=== PATIENT | female | born 1955 | race Caucasian/White ===

== ENCOUNTER 2017-01-19 03:29 | Inpatient (IN) | payer OTHER ==
--- NOTE | 2017-01-19 03:35 | EDPHY ---
H & P HPI/ROS: HPI CHIEF COMPLAINT: Left hip pain. HISTORY OF PRESENT ILLNESS: This patient very pleasant 61-year-old female she presents emergency room by EMS with left hip pain. She was walking on hardwood floor since then fell in her house. She now has left lateral hip pain. Her leg is externally rotated and shortened. She was drinking alcohol this evening. She denies any other areas of injury. She complains of 10/10 pain of the left hip. She did receive 100 mcg IV fentanyl prior to arrival and 2 mg IV Versed. Continues to still have pain. Her left leg is neurovascularly intact. She denies any other areas of injury. Additionally the patient reports her son when on [employer] and cool cold how to put dislocated hip back in manipulated her hip however this did not working cause worsening pain. Past Medical History: Chronic pain, on methadone, hypertension. Past Surgical History: Knee surgery Social History: Admits to drinking alcohol this evening. Multiple drinks Family History: Noncontributory ROS REVIEW OF SYSTEMS: A comprehensive 10 point review of systems is otherwise negative aside from elements mentioned in the history of present illness. Exam Constitutional nontoxic appearing, triage nursing summary reviewed, vital signs reviewed, awake/alert. Eyes normal conjunctivae and sclera, EOMI, PERRLA. HENT normal inspection, atraumatic, moist mucus membranes, no epistaxis, neck supple/ no meningismus, no raccoon eyes. Respiratory clear to auscultation bilaterally, normal breath sounds, no respiratory distress, no wheezing. Cardiovascular rate normal, regular rhythm, no murmur, no edema, distal pulses normal. Gastrointestinal soft, non-tender, no rebound, no guarding, normal bowel sounds, no distension, no pulsatile mass. Genitourinary no CVA tenderness. Musculoskeletal no midline vertebral tenderness, full range of motion, no calf swelling, no tenderness of extremities, no meningismus, good pulses, neurovascularly intact. Left lower extremity: Neurovascular intact good distal pulse., good warm extremity, it is externally rotated and shortened. Tender palpation over the left lateral hip. This appears to mainly be dislocated. Possible actual. Skin pink, warm, & dry, no rash, skin atraumatic. Neurologic awake, alert and oriented x 3, AAOx3, moves all 4 extremities equally, motor intact, sensory intact, CN II-XII intact, normal cerebellar, normal vision, normal speech. Psychiatric normal mood/affect. Heme/Lymph/Immune no lymphadenopathy. Differential Diagnosis: Includes but is not limited to in a particular order, hip fracture, hip fracture and dislocation, hip dislocation Medical Decision Making: Plan for this patient IV establishment patient care specialist , IV pain control 1 mg Dilaudid, IV Valium for muscle spasm 5 mg, x-ray left hip. Evaluate for fracture versus dislocation. Re-evaluation: 0401: The left x-ray shows a comminuted and impacted femoral neck fracture. 0401: Spoke with Ortho Carly HOOPER, call center assistant for Dr. Perez. Patient be admitted to the hospitalist. They plan on seeing the patient in morning rounds. Plan for OR. NPO. [id number]: This patient throughout her emergency room course was extremely agitated screaming in pain for over an hour. Restless. She admits to edible marijuana prior to arrival. As well as alcohol. She required a total of 3 mg high IV Dilaudid for acute pain control 10 mg IV Valium to control her acute agitation and restlessness. However this she continued to be agitated and restless. She was given 50 mg IV Benadryl which seemed to help her rest and calmed down. She received 1 L fluid. She has Vega in place. She is getting a 2nd L fluid. When she is Calm and not agitated I will allow her to go to the floor. Source: Patient, EMS - Medical/Surgical History Hx Asthma: No Hx Chronic Respiratory Disease: No Hx Diabetes: No Hx Cardiac Disease: No Hx Renal Disease: No Hx Cirrhosis: No Hx Alcoholism: No Hx HIV/AIDS: No Hx Splenectomy or Spleen Trauma: No Other PMH: Chronic pain, multiple orthopedic surgeries, HTN - Social History Smoking Status: Never smoked Constitutional: Initial Vital Signs Temperature (C) 36.5 C 01/19/17 03:35 Heart Rate 94 01/19/17 03:35 Respiratory Rate 18 01/19/17 03:35 Blood Pressure 141/97 H 01/19/17 03:35 O2 Sat (%) 94 01/19/17 03:35 O2 Delivery Mode Room Air Allergies/Adverse Reactions: bupropion Allergy (Severe, Verified 01/19/17 11:15) Other-Enter Comments beatriz Allergy (Severe, Uncoded 01/19/17 11:15) Home Medications: Medication Instructions Recorded FLUoxetine [Prozac 20 MG (*)] 20 mg PO DAILY 01/19/17 Lisinopril/Hctz 20/12.5MG 1 ea PO DAILY 01/19/17 [Zestoretic/Prinzide 20/12.5MG (*)] Methadone HCl [Methadone HCl 10 mg 20 mg PO BID 01/19/17 (*)] traMADol [Ultram 50 mg (*)] 25 - 50 mg PO Q6 PRN 01/19/17 traZODone [traZODONE 100MG (*)] 50 - 100 mg PO HS 01/19/17 Medical Decision Making - Diagnostics Imaging Results: Imaging Impressions Fluoroscopy 01/19/17 00:00 Impression: Fluoroscopy provided for left hip pinning procedure. Hip X-Ray 01/19/17 03:32 Impression: Comminuted, displaced, and foreshortened intertrochanteric fracture of the left hip. - Data Points Laboratory Results: Laboratory Results 01/19/17 03:30 01/19/17 03:30 Medications Given: Folic Acid (Folic Acid) 1 mg PO DAILY RAFY Stop: 07/18/17 08:59 Last Admin: 01/19/17 09:28 Dose: 1 mg Sodium Chloride (Ns) 1,000 mls @ 75 mls/hr IV CONT RAFY Stop: 07/18/17 06:14 Last Admin: 01/19/17 06:36 Dose: 1,000 mls Thiamine HCl 500 mg/ Sodium (Chloride) 105 mls @ 210 mls/hr IV DAILY RAFY Stop: 01/20/17 09:00 Last Admin: 01/19/17 09:11 Dose: 105 mls Lorazepam (Ativan Injection) 0.5 - 1 mg IVP Q8HRS PRN PRN Reason: Anxiety, Unable to Take PO Stop: 07/18/17 06:08 Last Admin: 01/19/17 06:39 Dose: 1 mg Lorazepam (Ativan Injection) 1 mg IVP Q4HRS PRN PRN Reason: Agitation Stop: 07/18/17 08:36 Last Admin: 01/19/17 13:45 Dose: 1 mg Multivitamins (Tab-A-Amado) 1 each PO DAILY RAFY Stop: 07/18/17 08:59 Last Admin: 01/19/17 09:27 Dose: 1 each Oxycodone HCl (Oxycodone Ir) 5 - 10 mg PO Q3HRS PRN PRN Reason: Pain, Severe Able to Take PO Stop: 01/29/17 06:08 Last Admin: 01/19/17 09:27 Dose: 10 mg Wine (White Wine) 240 ml PO DAILY AT 6PM RAFY Stop: 07/18/17 17:59 Last Admin: 01/19/17 21:38 Dose: Not Given Discontinued Medications Bupivacaine HCl (Sensorcaine 0.5% Vial) Confirm Administered Dose 30 ml .ROUTE .STK-MED ONE Stop: 01/19/17 14:29 Last Admin: 01/19/17 16:08 Dose: Not Given Bupivacaine HCl (Sensorcaine 0.25% Sdv) Confirm Administered Dose 30 ml .ROUTE .STK-MED ONE Stop: 01/19/17 15:17 Last Admin: 01/19/17 16:11 Dose: 30 ml Cefazolin Sodium (Ancef) Confirm Administered Dose 1 gm .ROUTE .STK-MED ONE Stop: 01/19/17 15:59 Last Admin: 01/19/17 15:59 Dose: 1 gm Cefazolin Sodium/Dextrose (Ancef 2 Gm (Premix)) Confirm Administered Dose 2 gm IV .STK-MED ONE Stop: 01/19/17 16:10 Last Admin: 01/19/17 14:49 Dose: 2 gm Diazepam (Valium Injection) 5 mg IVP EDNOW ONE Stop: 01/19/17 03:46 Last Admin: 01/19/17 03:48 Dose: 5 mg Diazepam (Valium Injection) 5 mg IVP EDNOW ONE Stop: 01/19/17 04:24 Last Admin: 01/19/17 04:26 Dose: 5 mg Diphenhydramine HCl (Benadryl Injection) 50 mg IVP EDNOW ONE Stop: 01/19/17 05:00 Last Admin: 01/19/17 05:01 Dose: 50 mg Epinephrine HCl (Epinephrine) Confirm Administered Dose 1 mg .ROUTE .STK-MED ONE Stop: 01/19/17 15:17 Last Admin: 01/19/17 16:11 Dose: 0.15 mg Fentanyl (Sublimaze) 25 - 100 mcg IVP Q5M PRN PRN Reason: PACU, IMMEDIATE Pain control Stop: 01/19/17 16:17 Last Admin: 01/19/17 17:50 Dose: 50 mcg Hydromorphone HCl (Dilaudid) 1 mg IVP EDNOW ONE Stop: 01/19/17 04:00 Last Admin: 01/19/17 04:00 Dose: 1 mg Hydromorphone HCl (Dilaudid) 1 mg IVP EDNOW ONE Stop: 01/19/17 04:01 Last Admin: 01/19/17 04:26 Dose: Not Given Hydromorphone HCl (Dilaudid) 1 mg IVP EDNOW ONE Stop: 01/19/17 04:36 Last Admin: 01/19/17 04:36 Dose: 1 mg Hydromorphone HCl (Dilaudid) 1 mg IVP EDNOW ONE Stop: 01/19/17 04:47 Last Admin: 01/19/17 04:55 Dose: 1 mg Hydromorphone HCl (Dilaudid) 0.5 - 1 mg IVP Q3HRS PRN PRN Reason: Pain, Severe Unable to Take PO Stop: 01/29/17 06:48 Last Admin: 01/19/17 08:12 Dose: 1 mg Hydromorphone HCl (Dilaudid) 2 mg IVP Q3HRS PRN PRN Reason: Pain, Severe Unable to Take PO Stop: 01/29/17 06:48 Last Admin: 01/19/17 11:13 Dose: 2 mg Hydromorphone HCl (Dilaudid) 0.1 - 0.4 mg IVP Q10M PRN PRN Reason: PACU, PAIN Stop: 01/19/17 16:18 Last Admin: 01/19/17 18:24 Dose: 0.4 mg Hydromorphone HCl (Dilaudid) 0.2 - 0.4 mg IVP Q10M PRN PRN Reason: SEVERE PAIN PACU Stop: 01/19/17 18:12 Last Admin: 01/19/17 18:34 Dose: 0.2 mg Sodium Chloride (Ns) 1,000 mls @ 0 mls/hr IV ONCE ONE PRN Reason: Wide Open Stop: 01/19/17 03:52 Last Admin: 01/19/17 04:05 Dose: 1,000 mls Sodium Chloride (Ns) 1,000 mls @ 0 mls/hr IV ONCE ONE PRN Reason: Wide Open Stop: 01/19/17 05:03 Last Admin: 01/19/17 05:03 Dose: 1,000 mls Lorazepam (Ativan Injection) 1 mg IVP ONCE ONE Stop: 01/19/17 07:59 Last Admin: 01/19/17 08:16 Dose: 1 mg Departure - Departure Disposition: [facility] Inpatient Acute Clinical Impression: Hip fracture Qualifiers: Encounter type: initial encounter Fracture type: closed Laterality: left Qualified Code(s): S72.002A - Fracture of unspecified part of neck of left femur , initial encounter for closed fracture Condition: Fair
[2017-01-19] MEDS ORDERED: DIAZEPAM 10 MG/2 ML SYR ONE (03:40)
[2017-01-19] MEDS ORDERED: DIAZEPAM 10 MG/2 ML SYR IVP ONE ×2 (03:45→04:23)
[2017-01-19] MEDS ORDERED: NS 1,000 ML IV ONE ×2 (03:51→05:02)
[2017-01-19 03:55] LABS: % IMMATURE GRANULYOCYTES 0.2 % (0.0-1.1); ABSOLUTE IMMATURE GRANULOCYTES 0.01 10^3/uL (0.00-0.10); ADD DIFF? NO; ADD MORPH? NO; ADD SCAN? NO; ATYPICAL LYMPHOCYTE FLAG 30 (0-99); FRAGMENT RBC FLAG 0 (0-99); HEMATOCRIT 36.7 % (38.0-47.0); HEMOGLOBIN 12.9 g/dL (12.6-16.3); LEFT SHIFT FLG 0 (0-99); LIPEMIA HEMOLYSIS FLAG 90 (0-99); MEAN CELL HEMOGLOBIN 31.5 pg (27.9-34.1); MEAN CELL HEMOGLOBIN CONCENTR. 35.1 g/dL (32.4-36.7); MEAN CELL VOLUME 89.5 fL (81.5-99.8); PLATELET CLUMPS FLAG 10 (0-99); PLATELET COUNT 226 10^3/uL (150-400); RED CELL DISTRIBUTION WIDTH 11.2 % (11.5-15.2)
[2017-01-19] MEDS ORDERED: HYDROmorphONE/DILAUDID 1 MG/ML INJ ONE ×2 (03:58→18:01)
[2017-01-19] MEDS ORDERED: HYDROmorphONE/DILAUDID 1 MG/ML INJ IVP ONE ×4 (03:59→04:46)
[2017-01-19 04:02] LABS: ANION GAP 17 mEq/L (8-16); CALCIUM 9.4 mg/dL (8.5-10.4); CARBON DIOXIDE 26 mEq/l (22-31); CHLORIDE 82 mEq/L (97-110); CREATININE 0.8 mg/dL (0.6-1.0); ETHANOL SERUM 192 mg/dL (0-10); GLOMERULAR FILTRATION RATE > 60; GLUCOSE 100 mg/dL (70-100); POTASSIUM 3.6 mEq/L (3.5-5.2); SODIUM 125 mEq/L (134-144)
[2017-01-19 04:04] LABS: APTT 31.4 SEC (23.0-38.0); INR 1.04 (0.83-1.16); PROTIME(PATIENT) 13.5 SEC (12.0-15.0)
[2017-01-19] MEDS ORDERED: PROMETHAZINE HCL 25 MG/ML INJ IVP PRN (06:09)
[2017-01-19] MEDS ORDERED: ONDANSETRON 4 MG/2 ML VIAL IVP PRN ×2 (06:09→15:17)
[2017-01-19] MEDS: NS 1,000 ML IV SCH (06:36)
[2017-01-19] MEDS: LORazepam 2 MG/ML INJ IVP PRN ×2 (06:39→13:45)
[2017-01-19] MEDS ORDERED: HYDROmorphONE/DILAUDID 1 MG/ML INJ IVP PRN ×3 (06:49→18:11)
[2017-01-19] MEDS ORDERED: LORazepam 2 MG/ML INJ IVP ONE (07:58)
--- NOTE | 2017-01-19 08:16 | PDGENHP ---
History and Physical - Chief Complaint left hip pain, fall at home - History of Present Illness Source - patient provides some of the history. She is crying out in pain and intermittently confused and agitated but attempts to be cooperative. HPI - 61 yo F with pmhx significant for chronic pain on chronic narcotic therapy , HTN, and alcohol dependence who presents to the ED today following a mechanical fall at home. Patient reports that she was carrying up laundry from the baseline to fold them when she stubbed her toes on the table leg and fell down. She reports immediate pain in her left hip and spasms in the leg. She denies any numbness/tingling. She denies any pre-ceding lightheadedness, chest pain or shortness of breath. She does report hitting her head but denies any LOC. Patient reports some history of nausea this evening otherwise denies any other complaints except for spasm pains in her leg and subjective fever soon after arrival to ED. no cough/rhinorrhea/sore throat/dysuria. History Information - Allergies/Home Medication List Allergies/Adverse Reactions: beatriz Allergy (Uncoded 08/04/13 00:09) Home Medications: Methadone HCl 08/04/13 [Last Taken Unknown] traZODONE 08/04/13 [Last Taken Unknown] Lisinopril 08/06/13 [Last Taken Unknown] I have personally reviewed and updated: family history, medical history, social history, surgical history Past Medical History: chronic pain on chronic narcotic therapy. HTN. alcohol dependence. marijuana use - Surgical History Additional surgical history: open ACL repair - Family History Negative for: diabetes type II, sudden , vascular disease, CAD - Social History Smoking Status: Never smoked Alcohol Use: Other Drug Use: Marijuana Review of Systems Review of Systems: ROS: 10pt was reviewed & negative except for what was stated in HPI & below Constitutional: Reports: fever. Denies: chills Cardiac: Denies: lightheadedness, palpitations, syncope Respiratory: Reports: no symptoms. Denies: cough, shortness of breath Gastrointestinal: Reports: nausea. Denies: vomitting, black stools Genitourinary: Denies: dysuria, flank pain Muscolosketal: Reports: joint pain Skin: Denies: rash Physical Exam Physical Exam: Temp Pulse Resp BP Pulse Ox 37 C 100 18 162/84 H 93 01/19/17 07:57 01/19/17 07:57 01/19/17 07:57 01/19/17 07:57 01/19/17 07:57 O2 (L/minute) 2 Constitutional: chronically ill appearing, No no apparent distress, No not in pain Eyes: PERRL, anicteric sclera Ears, Nose, Mouth, Throat: dry mucous membranes, No moist mucous membranes Cardiovascular: regular rate and rhythym, pulses symmetric bilaterally, tachycardia, No edema Peripheral Pulses: 2+: dorsalis-pedis (R), dorsalis-pedis (L) Respiratory: no respiratory distress, clear to auscultation, No expiratory wheeze Gastrointestinal: normoactive bowel sounds, no palpable masses, No tenderness Genitourinary: No no bladder fullness, No hager in urethra Skin: warm, normal color, No rash Musculoskeletal: full muscle strength (moves all other extremities except left leg. hip flexed and externally rotated. moves foot/toes. ), joint tenderness ( left leg), No generalized weakness Neurologic: sensation intact bilaterally, other (nonfocal exam. ), No AAOx3 ( sometimes confused. ), No numbness Psychiatric: anxious, other (intermittently confused. ), No interacting appropriately Lab Data & Imaging Review 01/19/17 03:30 01/19/17 03:30 WBC 5.55 10^3/uL (3.80-9.50) 01/19/17 03:30 RBC 4.10 10^6/uL (4.18-5.33) L 01/19/17 03:30 Hgb 12.9 g/dL (12.6-16.3) 01/19/17 03:30 Hct 36.7 % (38.0-47.0) L 01/19/17 03:30 MCV 89.5 fL (81.5-99.8) 01/19/17 03:30 MCH 31.5 pg (27.9-34.1) 01/19/17 03:30 MCHC 35.1 g/dL (32.4-36.7) 01/19/17 03:30 RDW 11.2 % (11.5-15.2) L 01/19/17 03:30 Plt Count 226 10^3/uL (150-400) 01/19/17 03:30 MPV 10.0 fL (8.7-11.7) 01/19/17 03:30 Neut % (Auto) 38.5 % (39.3-74.2) L 01/19/17 03:30 Lymph % (Auto) 50.1 % (15.0-45.0) H 01/19/17 03:30 [place] % (Auto) 8.5 % (4.5-13.0) 01/19/17 03:30 Eos % (Auto) 2.2 % (0.6-7.6) 01/19/17 03:30 Baso % (Auto) 0.5 % (0.3-1.7) 01/19/17 03:30 Nucleat RBC Rel Count 0.0 % (0.0-0.2) 01/19/17 03:30 Absolute Neuts (auto) 2.14 10^3/uL (1.70-6.50) 01/19/17 03:30 Absolute Lymphs (auto) 2.78 10^3/uL (1.00-3.00) 01/19/17 03:30 Absolute Monos (auto) 0.47 10^3/uL (0.30-0.80) 01/19/17 03:30 Absolute Eos (auto) 0.12 10^3/uL (0.03-0.40) 01/19/17 03:30 Absolute Basos (auto) 0.03 10^3/uL (0.02-0.10) 01/19/17 03:30 Absolute Nucleated RBC 0.00 10^3/uL (0-0.01) 01/19/17 03:30 Immature Gran % 0.2 % (0.0-1.1) 01/19/17 03:30 Immature Gran # 0.01 10^3/uL (0.00-0.10) 01/19/17 03:30 PT 13.5 SEC (12.0-15.0) 01/19/17 03:30 INR 1.04 (0.83-1.16) 01/19/17 03:30 APTT 31.4 SEC (23.0-38.0) 01/19/17 03:30 Sodium 125 mEq/L (134-144) L 01/19/17 03:30 Potassium 3.6 mEq/L (3.5-5.2) 01/19/17 03:30 Chloride 82 mEq/L (97-110) L 01/19/17 03:30 Carbon Dioxide 26 mEq/l (22-31) 01/19/17 03:30 Anion Gap 17 mEq/L (8-16) H 01/19/17 03:30 BUN 14 mg/dL (7-23) 01/19/17 03:30 Creatinine 0.8 mg/dL (0.6-1.0) 01/19/17 03:30 Estimated GFR > 60 01/19/17 03:30 Glucose 100 mg/dL (70-100) 01/19/17 03:30 Calcium 9.4 mg/dL (8.5-10.4) 01/19/17 03:30 Urine Opiates Screen NEGATIVE (NEGATIVE) 01/19/17 04:10 Urine Barbiturates NEGATIVE (NEGATIVE) 01/19/17 04:10 Ur Phencyclidine Scrn NEGATIVE (NEGATIVE) 01/19/17 04:10 Ur Amphetamine Screen NEGATIVE (NEGATIVE) 01/19/17 04:10 U Benzodiazepines Scrn NON-NEGATIVE (NEGATIVE) H 01/19/17 04:10 Urine Cocaine Screen NEGATIVE (NEGATIVE) 01/19/17 04:10 U Marijuana (THC) Screen NON-NEGATIVE (NEGATIVE) H 01/19/17 04:10 Ethyl Alcohol 192 mg/dL (0-10) H 01/19/17 03:30 Visualized and Interpreted imaging results: Yes Assessment & Plan Assessment: Hip fracture (Acute) 1. Left hip fracture - 2/2 mechanical fall at home per the patient however during interview patient progressively with increased confusion further evaluation as noted below. Ortho consulted from ED and saw patient this AM. discussed patient and not yet ready for surgery until further evaluation of AMS and sodium. 2. Altered mental status - ddx including polysubstance use vs. intracranial injury vs. less like stroke vs metabolic related to hyponatremia. CT Head will be ordered. patient is able to move all extremities with exception of left LE. check UA, CXR r/o infectious sources. IVF. monitor sodium and urine studies. 3. hyponatremia - serum/urine studies as above. IVF for now. 4. hypochloridemia - decreased in setting of hyponatremia. 5. anemia - mildly decreased and chronicity unknown. Hx of etoh will monitor cbc. 6. fall at home - pt reports is mechanical. bedrest at this time. fall precautions. 5. alcohol dependence - patient alcohol level 192. [facility] protocol 6. marijuana abuse - cessation encouraged. 7. chronic opiate use - pain may be difficult to control postoperatively and will need escalation from baseline. 8. benign essential HTN - BPs likely elevated acutely with pain. hydralazine prn. resume lisinopril postoperatively when diet advanced. 9. FEN - IVF. electrolyte replacement prn. NPO pending ortho eval. 10. PPX - SCDs. holding anticoagulation pre-operatively. 11. COR - FULL 12. Dispo - admit patient to inpatient status. Patient will require greater than 2 midnight stay in setting of hip fracture.
[2017-01-19] MEDS ORDERED: hydrALAZINE 20 MG/ML VIAL IVP PRN (08:36)
--- NOTE | 2017-01-19 08:53 | GHP ---
[f rep st] PREOP HISTORY AND PHYSICAL DATE OF ADMISSION: 01/19/2017 CHIEF COMPLAINT: The patient was brought to the emergency department last night with complaints of left hip pain after a fall. HISTORY OF PRESENT ILLNESS: The patient states that she was at home when she slipped on wooden floors, landing on her left hip. She states that she also hit her head, but did not lose consciousness. At this time, she does not complain of a headache. She does complain of pain in the left leg when her leg is moved, but at rest she is generally saying that it feels okay. Her history is somewhat limited as she does seem very sedated and somewhat confused. However, she was able to give a history of her present illness. She has never injured this hip before and does not have pain into the femur, knee, lower leg, ankle, or foot on the left side. She does not have numbness or tingling of the toes. She denies any other joint pain at this time. PAST MEDICAL HISTORY: The patient states that she is on methadone for chronic pain. 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 She states that she also has ongoing back pain, but is not able to give me the underlying diagnosis. She also has a history of hypertension. SURGICAL HISTORY: The patient had the above-mentioned knee replacements twice on the left side and the femur fracture on the right side when she was younger. She does not recall any other orthopedic surgeries at this time. SOCIAL HISTORY: The patient did drink alcohol last night, and upon her ER report admitted to edible marijuana; however, when I asked her about this, she stated that she did not. She denied any other drug use when asked. She is a nonsmoker. Currently, she is not accompanied by any family members, but states that her is on his way. FAMILY HISTORY: Patient is unaware of any past medical history regarding her family members. ALLERGIES: Nickel. MEDICATIONS: Trazodone, methadone, and lisinopril. This is taken from her ER report. She is unable to verbalize her medications to me when I ask her. REVIEW OF SYSTEMS: 10-point review of systems was otherwise negative as best that she is able to answer. PHYSICAL EXAMINATION: GENERAL: The patient is alert, answers some questions appropriately but, again, is quite sedated and somewhat confused. She does not appear to be in any distress related to pain, however. HEENT: The patient's head is atraumatic and normocephalic. Extraocular movements are intact. Pupils are equal, round, reactive to light. Nares are patent. Hearing is grossly normal. Oral mucosa is moist. LUNGS: Respirations are easy and nonlabored. No respiratory distress is present. CARDIOVASCULAR: Distally the patient's upper extremity and lower extremity pulses are equal. No lower extremity edema is present. Capillary refill is brisk to all digits in both upper and lower extremities. GASTROINTESTINAL: The patient's abdomen is soft and nontender. SKIN: No abrasions, lacerations, ecchymosis, redness, or warmth is seen. PSYCH: As above regarding patient's difficulty in answering questions c/w AMS. NEUROLOGIC: Sensation is intact to both upper and lower extremities. She can move all fingers and toes without difficulty. MUSCULOSKELETAL: The patient's left hip is rested in a shortened and an externally rotated position. She does not have pain with palpation at the knee , calf, lower leg, ankle, or foot on the left side. She does not have pain with internal or external rotation of the right hip. No pain to palpate the femur, knee, lower leg, or ankle. Chest wall is nontender. The upper extremities reveal full range of motion with no pain at the wrists, forearm, elbow, and shoulder. No clavicle tenderness is present bilaterally. Comp's soft. DNVI BLE's. No calf TTP, neg Nahun's. Secondary survey negative. IMAGING: X-rays of the left hip reveal a comminuted left intertrochanteric hip fracture and distal plate/screws. IMPRESSION: Left IT hip fracture PLAN: Case was discussed with Dr. Zaman, the hospitalist who admitted the patient. At this time, the patient is not cleared. Given her mental status, a CT of the head was to be ordered. We will await results of the head CT before clearing her for surgery and arranging the ORIF L hip later today. Later this AM, MS improved and R/B/A discussed with patient and her , and a signed and witnessed informed consent has been obtained by Dr Kothari with signatures by both pt and . Cont NPO, bedrest, position of comfort, analgesia. All questions answered and they are happy with the plan and care received. History, exam, plan and consent procedure performed and/or directly supervised by Dr Kothari. /[id number]/MODL MTDD
[2017-01-19 09:11] LABS: COLOR PALE YELLOW; LEUKOCYTE ESTERASE,URINE NEGATIVE (NEGATIVE); NITRITE,URINE NEGATIVE (NEGATIVE)
[2017-01-19] MEDS: THIAMINE HCL 500 MG in NS 100 ML IV SCH (09:11)
[2017-01-19 09:20] LABS: RBC,URINE 50-182 /hpf (0-3)
--- NOTE | 2017-01-19 09:20 | PDMN ---
Medical Necessity Medical necessity: C/M review: Pt. meets INPT criteria per Musculoskeletal disease GRG; Acute left intertrochanteric hip fracture, altered mental status, hyponatremia, Na 125, Cl 82 requiring planned - surgical intervention when medically cleared, 01/19/[address], ongoing NPO, IV fluids, IV Dilaudid, IV Ativan, CIWA protocol, comorbid fall just prior to this admission, alcohol dependence, marijuana abuse, chronic pain with chronic opiate use, HTN; anticipates > 2 MN LOS for ongoing medical necessity for eval and TX of above.
[2017-01-19] MEDS: MULTIVITAMINS 1 EACH TAB PO SCH (09:27)
[2017-01-19] MEDS: oxyCODONE IR 5 MG TAB PO PRN ×2 (09:27→23:11)
[2017-01-19] MEDS: FOLIC ACID 1 MG TAB PO SCH (09:28)
--- NOTE | 2017-01-19 09:41 | HOSPPROG ---
Hospitalist Progress Note Assessment/Plan: Patient is a 61-year-old female who had a mechanical fall at home and sustained a left hip fracture. She was to go OR this morning but had some altered mental status. I just reviewed her CT of her head which shows nothing acute. Today is my 1st encounter with the patient. Chart reviewed. * left hip fracture Okay to go to OR today * acute altered mental status CT scan of the head is stable CT scan of the head is stable she is agitated during my evaluation but is able to follow commands and is alert and oriented * hyponatremia Will follow labs * anemia follow * alcohol use with an alcohol level of 192 Placed on the CIWA protocol describes that she uses quite a bit of alcohol and drinks wine Will order wine with dinner to avoid withdrawals from this on folate, thiamine *underweight with a BMI of 18 * cannabis use * chronic opiate use Per her she is on chronic methadone May be difficult to control her pain in the postop setting will ask pharmacy to do a pain consult * hypertension Blood pressure is elevated this morning I suspect this is secondary from pain she is on an ACEI/diuretic, will hold and evaluate in the a.m. and restart if stable * nicotine dependence patch * gait instability resulting in a fall *DVT prophylaxis:per orthopedics Subjective: Kalee is not c/o pain Objective: Vital Signs Temp Pulse Resp BP Pulse Ox 37 C 100 18 162/84 H 93 01/19/17 07:57 01/19/17 07:57 01/19/17 07:57 01/19/17 07:57 01/19/17 07:57 01/18/17 01/19/17 01/20/17 05:59 05:59 05:59 Intake Total 500 Balance 500 PT 13.5 SEC (12.0-15.0) 01/19/17 03:30 INR 1.04 (0.83-1.16) 01/19/17 03:30 - Physical Exam Constitutional: chronically ill appearing, cachectic, No not in pain Eyes: PERRL Ears, Nose, Mouth, Throat: hearing normal Cardiovascular: regular rate and rhythym Respiratory: no respiratory distress Gastrointestinal: normoactive bowel sounds Musculoskeletal: other (left leg shortened) Neurologic: other (alert and oriented to herself and but is very agitated ) Psychiatric: agitated ICD10 Worksheet Patient Problems: Problems Problem Status Onset Hip fracture Acute
[2017-01-19] MEDS ORDERED: PHARMACY PAIN CONSULT 1 EA MISC SCH (11:00)
[2017-01-19] MEDS ORDERED: CEFAZOLIN 2 GM/DEXTROSE/100 ML BAG IV ONE ×2 (14:20→16:09)
[2017-01-19] MEDS ORDERED: fentaNYL 100 MCG/2 ML INJ ONE ×2 (14:22→17:45)
[2017-01-19] MEDS ORDERED: PROPOFOL 200 MG/20 ML VIAL ONE (14:23)
[2017-01-19] MEDS ORDERED: BUPIVACAINE 0.5% 30 ML SDV ONE (14:28)
[2017-01-19] MEDS ORDERED: ROCURONIUM 50 MG/5 ML VIAL ONE (14:38)
[2017-01-19] MEDS ORDERED: DEXAMETHASONE 4 MG/ML VIAL ONE (14:38)
[2017-01-19] MEDS ORDERED: SUCCINYLCHOLINE CHLORIDE*ANESTHESIA ONLY*200 MG/10 ML SYR IVP ONE (14:38)
[2017-01-19] MEDS ORDERED: LIDOCAINE 2% 5 ML SDV ONE (14:41)
[2017-01-19] MEDS ORDERED: PROPOFOL/EMULSION 500 MG/50 ML BOTTLE IV ONE ×2 (14:59→16:47)
[2017-01-19] MEDS ORDERED: REMIFENTANIL HCL 1 MG VIAL ONE ×2 (14:59→16:47)
[2017-01-19] MEDS ORDERED: BUPIVACAINE 0.25% 30 ML SDV ONE (15:16)
--- NOTE | 2017-01-19 15:16 | PDANEPAE ---
ANE Past Medical History - Cardiovascular History Hx Hypertension: Yes Hx Arrhythmias: No Hx Chest Pain: No Hx Coronary Artery / Peripheral Vascular Disease: No Hx CHF / Valvular Disease: No Hx Palpitations: No - Pulmonary History Hx COPD: No Hx Asthma/Reactive Airway Disease: No Hx Recent Upper Respiratory Infection: No Hx Oxygen in Use at Home: No Hx Sleep Apnea: No Sleep Apnea Screening Result - Last Documented: Negative - Neurologic History Hx Cerebrovascular Accident: No Hx Seizures: No Hx Dementia: No - Endocrine History Hx Diabetes: No Hypothyroid: No Hyperthyroid: No Obesity: no - Renal History Hx Renal Disorders: No - Neurological & Psychiatric Hx Hx Neurological and Psychiatric Disorders: Yes Neurological / Psychiatric History Comment: depression - GI History GERD: no - Chronic Pain History Chronic Pain: Yes - Surgical History Prior Surgeries: TKA ANE Review of Systems Review of Systems: - Exercise capacity METS (RN): 4 METS - Systems Cardiac: Reports: no symptoms Respiratory: Reports: no symptoms ANE Patient History - Allergies Allergies/Adverse Reactions: bupropion Allergy (Severe, Verified 01/19/17 11:15) Other-Enter Comments beatriz Allergy (Severe, Uncoded 01/19/17 11:15) - Home Medications Home Medications: FLUoxetine [Prozac 20 MG (*)] 20 mg PO DAILY 01/19/17 [Last Taken Unknown] Lisinopril/Hctz 20/12.5MG [Zestoretic/Prinzide 20/12.5MG (*)] 1 ea PO DAILY 11/28 [Last Taken 01/18/17] Methadone HCl [Methadone HCl 10 mg (*)] 20 mg PO BID 01/19/17 [Last Taken ] traMADol [Ultram 50 mg (*)] 25 - 50 mg PO Q6 PRN 01/19/17 [Last Taken Unknown] traZODone [traZODONE 100MG (*)] 50 - 100 mg PO HS 01/19/17 [Last Taken Unknown] - NPO status NPO Since - Liquids (Date): 01/19/17 NPO Since - Liquids (Time): 23:00 NPO Since - Solids (Date): 01/18/17 NPO Since - Solids (Time): 20:00 - Anes Hx Anes Hx: no prior problems - Smoking Hx Smoking Status: Never smoked - Alcohol Use Alcohol Use: Other - Family Anes Hx Family Anes Hx: neg - N/A ANE Labs/Vital Signs - Labs Result Diagrams: 01/19/17 03:30 01/19/17 03:30 - Vital Signs Blood Pressure: 170/106 Heart Rate: 98 Respiratory Rate: 16 O2 Sat (%): 95 Height: 162.56 cm Weight: 48.534 kg ANE Physical Exam - Airway Neck exam: FROM Mallampati Score: Class 2 Mouth exam: normal dental/mouth exam - Pulmonary Pulmonary: no respiratory distress - Cardiovascular Cardiovascular: regular rate and rhythym - ASA Status ASA Status: III ANE Anesthesia Plan Anesthesia Plan: general endotracheal anesthesia
[2017-01-19] MEDS ORDERED: NALOXONE HCL 0.4 MG/ML INJ IVP PRN ×2 (15:17→18:46)
[2017-01-19] MEDS ORDERED: LR 500 ML IV PRN (15:17)
[2017-01-19] MEDS ORDERED: ceFAZolin 1 GM VIAL ONE (15:58)
[2017-01-19] MEDS ORDERED: LABETALOL HCL 5 MG/ML 20 ML MDV ONE ×2 (17:21→18:11)
[2017-01-19] MEDS ORDERED: ENALAPRILAT DIHYDRATE 1.25 MG/ML VIAL ONE (17:21)
--- NOTE | 2017-01-19 17:29 | POSTOPPROG ---
Post Op Note Date of Operation: 01/19/17 Surgeon: Roge Kothari (Dr. Kothari) Pre-op Diagnosis: Left intertrochanteric fracture, displaced Post-op Diagnosis: Left intertrochanteric fracture with ORIF Indication: Unstable fracture Procedure: ORIF repair of left intertrochanteric fracture Inf/Abcess present in the surg proc area at time of surgery?: No EBL: 50-100 Complications: None Specimen(s): None
--- NOTE | 2017-01-19 17:40 | POSTANESTH ---
Post Anesthetic Evaluation Cardiovascular Status: Normal, Stable Respiratory Status: Normal, Stable Level of Consciousness/Mental Status: Moderately Sleepy Pain Control: Adequate, Prn Tx Ordered Nausea/Vomiting Control: Adequate, Prn Tx Ordered Complications Possibly Related to Anesthesia: None Noted
[2017-01-19] MEDS: fentaNYL 100 MCG/2 ML INJ IVP PRN ×2 (17:45→17:50)
[2017-01-19] MEDS ORDERED: WHITE WINE 120 ML BOTTLE PO SCH (18:00)
[2017-01-19] MEDS: HYDROmorphONE/DILAUDID 1 MG/ML INJ IVP PRN ×3 (18:03→23:10)
[2017-01-19] MEDS ORDERED: LABETALOL HCL 5 MG/ML 20 ML MDV IVP ONE (18:15)
--- NOTE | 2017-01-19 21:11 | GOP ---
[f rep st] OPERATIVE REPORT DATE OF OPERATION: 01/19/2017 SURGEON: Roge Kothari MD NUCLEAR EQUIPMENT DESIGN ENGINEER: Carly Pradhan PA-C. ANESTHESIA: General. ANESTHESIOLOGIST: Dr. Burnette. PREOPERATIVE DIAGNOSIS: Left intertrochanteric hip fracture. POSTOPERATIVE DIAGNOSIS: Left intertrochanteric hip fracture. PROCEDURE PERFORMED: Left hip intramedullary nailing for intertrochanteric fracture (short gamma nail). FINDINGS: Reverse obliquity, unstable left intertrochanteric hip fracture with severe greater trochanteric comminution. Lesser trochanter was fractured and displaced. Bone quality was poor, consistent with osteoporosis. SPECIMENS: None. ESTIMATED BLOOD LOSS: 100 cc. INDICATIONS: This is a 61-year-old chronic pain patient who is on methadone and was intoxicated with a blood alcohol near 0.2 and marijuana, who suffered a fall, fracturing her left hip. The patient has significant and pertinent past surgical history, including a stemmed femoral implant for total knee arthroplasty as well as a lateral distal femoral plate for prior supracondylar femur fracture. As a result, these implants weighed in heavily for the patient' s fracture fixation options for the hip fracture. The risks, benefits and alternatives were described to the patient and . All of her questions were answered prior to surgery. She provided a signed and witnessed informed consent, which was placed in her chart, and this was cosigned by her given that the patient was with some degree of residual altered mental status. Please see history and physical for additional information. DESCRIPTION OF PROCEDURE: The patient was identified in the preoperative holding area and her left hip was signed and designated as the operative site. The patient was confirmed in right lower extremity MORGAN hose and SCDs. She was treated with 2 g IV prophylactic cefazolin per protocol. She was taken back to the operating room, placed supine on the OR table, and general anesthesia was obtained. The OR table was a standard fracture table with perineal posts with abundant padding. Both feet were placed in well-padded boots with a standard positioning device and padding. Both upper extremities were well padded around the elbows and wrists, and the left upper extremity was tucked across her chest. Her right upper extremity was placed on a well-padded arm board. Using the booms, the right hip was extended and the left hip was slightly flexed. The large C-arm was then used to perform a closed reduction, with standard traction, rotation and adduction. Once an acceptable reduction was achieved, the patient was then prepped and draped in the usual sterile manner. Standard lateral incisions x2 were placed in the appropriate positions for placement of a gamma nail. The first incision was just proximal to the tip of the greater trochanter. The next one was down at the level of the greater trochanter and/or lesser trochanter. Each incision was made with a #15 blade, the more distal of which was approximately 3.5 cm more proximal, which was approximately 5 cm. Careful dissection was taken down through the subcutaneous fat. The IT band and/or fascia was identified and divided in parallel with its fibers. Blunt dissection was then used to palpate the tip of the greater trochanter with my finger. A standard guidewire was used to place a center- center entry point down through the greater trochanteric tip down into the center-center portion of the femur distal to the lesser trochanter. Once this was found to be in the appropriate position on AP and lateral imaging, the one- step reamer was used to open the entry to the canal for the nail. A standard short gamma nail was then placed over the guidewire and tapped down into position. Once this was tapped down to the appropriate depth and rotation, a guidewire was placed through the lateral incision and IT band split and placed up through the center-center portion of the femoral neck into the appropriate position of center-center at the femoral head. This was then overdrilled to the appropriate length after measurement of length with the standard measuring device using the [employer] standard technique. Once the lag screw drill hole was created, an appropriate lag screw was placed over the guidewire and then screwed down into position in the appropriate depth. A set screw was placed in a dynamic position in order to lock the rotation of the screw. Once these steps were completed, the overall fracture alignment and construct were evaluated with AP and lateral films. Appropriate fixation was confirmed throughout at the fracture site. Due to the close positioning of the tip of the nail and the top of the prior previously placed lateral plate, no distal interlock screw was utilized in order to limit any further stress riser at the level of the 2 implants. There was approximately 4 cm of bone on estimation with the large C-arm between the tip of the nail and the top of the plate, approximately 5 or 6 cm between the first screw hole and tip of the nail. Again as a result, no distal interlock was utilized. Once the work was completed, the wounds were copiously irrigated with sterile saline. Closure was then begun. Please note that all jig devices and/or Shaun implants were removed. 0 Vicryl was used to reapproximate and close the fascial splits and her IT band split. The deep fat space was also closed with 0 Vicryl suture. Deep dermal layer was closed with 2-0 Vicryl sutures. The proximal wound was closed with kristi. The distal wound had a small area of a skin tear from placement of the lag screw and therefore this was closed meticulously with a series of 2-0 Vicryl sutures and 3-0 nylon sutures in order to repair the small side tear. Once the wounds were appropriately closed, sterile postoperative surgical dressings were applied. The patient was taken out of her positioning and positioning devices. The anesthesia service then took over to wake the patient up after she was returned to the [facility]. TOURNIQUET TIME: None. DRAINS: None. IMPLANTS: [place] gamma 3 short intramedullary nail with compression screw in a dynamic setting. No distal interlock was used. COMPLICATIONS: None. DISPOSITION: The patient was extubated and transferred to the PACU in stable condition. /[id number]/MODL MTDD
[2017-01-19] MEDS: ceFAZolin 2 GM/DEXTROSE 100 ML IV SCH (21:49)
[2017-01-20] MEDS: LORazepam 2 MG/ML INJ IVP PRN (00:24)
[2017-01-20] MEDS: traMADol 50 MG TAB PO PRN (01:52)
[2017-01-20] MEDS ORDERED: METHADONE HCL 10 MG TAB PO SCH (02:15)
--- NOTE | 2017-01-20 02:39 | CPEKG ---
Heart Rate: 90 RR Interval: 667 P-R Interval: 176 QRSD Interval: 72 QT Interval: 416 QTC Interval: 509 P Edwards: 24 QRS Edwards: 26 T Wave Edwards: -37 EKG Severity - ABNORMAL ECG - EKG Impression: SINUS RHYTHM EKG Impression: PROBABLE ANTEROSEPTAL INFARCT, AGE INDETERM EKG Impression: BORDERLINE T ABNORMALITIES, INFERIOR LEADS EKG Impression: BORDERLINE PROLONGED QT INTERVAL Electronically Signed By: Enrique Shelley 26-Jan-2017 08:49:15
[2017-01-20] MEDS: chlordiazePOXIDE 25 MG CAP PO PRN ×2 (02:54→13:52)
[2017-01-20] MEDS: oxyCODONE IR 5 MG TAB PO PRN (04:27)
[2017-01-20 05:02] LABS: % IMMATURE GRANULYOCYTES 0.4 % (0.0-1.1); ABSOLUTE IMMATURE GRANULOCYTES 0.03 10^3/uL (0.00-0.10); ADD DIFF? NO; ADD MORPH? NO; ADD SCAN? NO; ATYPICAL LYMPHOCYTE FLAG 0 (0-99); FRAGMENT RBC FLAG 0 (0-99); HEMOGLOBIN 7.5 g/dL (12.6-16.3); LEFT SHIFT FLG 0 (0-99); LIPEMIA HEMOLYSIS FLAG 90 (0-99); MEAN CELL HEMOGLOBIN 31.4 pg (27.9-34.1); MEAN CELL HEMOGLOBIN CONCENTR. 35.7 g/dL (32.4-36.7); MEAN CELL VOLUME 87.9 fL (81.5-99.8); MEAN PLATELET VOLUME 10.3 fL (8.7-11.7); PLATELET CLUMPS FLAG 0 (0-99); PLATELET COUNT 161 10^3/uL (150-400); RED BLOOD CELL COUNT 2.39 10^6/uL (4.18-5.33); RED CELL DISTRIBUTION WIDTH 11.3 % (11.5-15.2)
[2017-01-20 05:19] LABS: ALANINE AMINOTRANSFERASE 27 IU/L (9-52); ALBUMIN 3.4 g/dL (3.5-5.0); ALKALINE PHOSPHATASE 44 IU/L (38-126); ANION GAP 11 mEq/L (8-16); ASPARTATE AMINOTRANSFERASE 33 IU/L (14-46); CALCIUM 8.3 mg/dL (8.5-10.4); CARBON DIOXIDE 26 mEq/l (22-31); CHLORIDE 87 mEq/L (97-110); CREATININE 0.6 mg/dL (0.6-1.0); GLOMERULAR FILTRATION RATE > 60; GLUCOSE 123 mg/dL (70-100); MAGNESIUM 1.5 mg/dL (1.6-2.3); POTASSIUM 2.9 mEq/L (3.5-5.2); SODIUM 124 mEq/L (134-144); TOTAL PROTEIN 5.5 g/dL (6.3-8.2)
[2017-01-20] MEDS: ceFAZolin 2 GM/DEXTROSE 100 ML IV SCH ×2 (05:31→14:25)
[2017-01-20 05:35] LABS: CK-MB INTERPRETATION NEGATIVE (NEGATIVE)
[2017-01-20 05:36] LABS: CREATINE KINASE-MB FRACTION 3.77 ng/mL (0.00-3.19)
[2017-01-20] MEDS: HYDROmorphONE/DILAUDID 1 MG/ML INJ IVP PRN ×3 (06:25→08:38)
[2017-01-20] MEDS ORDERED: PROTOCOL POTASSIUM 1 DOSE MISC PRN (06:49)
[2017-01-20] MEDS ORDERED: PROTOCOL MAGNESIUM 1 DOSE IV PRN (06:49)
[2017-01-20] MEDS ORDERED: PROTOCOL K PHOSPHATE 1 DOSE IV PRN (06:49)
[2017-01-20] MEDS ORDERED: NALOXONE HCL 0.4 MG/ML INJ IVP PRN (08:36)
[2017-01-20] MEDS ORDERED: ENOXAPARIN 40 MG/0.4 ML SYR SC SCH (09:00)
--- NOTE | 2017-01-20 09:00 | SOAPPROG ---
SOAP Progress Note Assessment/Plan: Assessment/Plan: s/p IM nail fixation L hip fracture - Continue pain management, pain consult would be helpful - TDWB LLE - SCDs/TEDs for mechanical prophylaxis - Lovenox 40mg daily for VTE chemoprophylaxis - 24 hours of antibiotic prophylaxis post-operatively - Continue PT/OT - Dressing change tomorrow, reinforce as needed 01/20/17 08:55 01/20/17 09:01 Subjective: Pt states her pain is uncontrolled and she was unable to sleep last night. Pt denies fever, chills, chest pain, SOB, abdominal pain, N/V/D, numbness, tingling , calf pain. Objective: Vital Signs Temp Pulse Resp BP Pulse Ox 37.2 C 109 H 17 166/103 H 93 01/20/17 07:46 01/20/17 07:46 01/20/17 07:46 01/20/17 07:46 01/20/17 07:46 Laboratory Results 01/20/17 04:30 01/19/17 01/20/17 01/21/17 05:59 05:59 05:59 Intake Total 500 900 Output Total 1900 Balance 500 -1000 PT 13.5 SEC (12.0-15.0) 01/19/17 03:30 INR 1.04 (0.83-1.16) 01/19/17 03:30 Physical Exam - Physical Exam General Appearance: alert, anxiety Cardiac/Chest: normal peripheral pulses Skin: normal color, warm/dry, other (dressing intact over the incision site with small amount of bloody drainage) Extremities: normal capillary refill, No pedal edema, No calf tenderness, No swelling, No Nahun's sign Neuro/Psych: no motor/sensory deficits, alert, oriented x 3 ICD10 Worksheet Patient Problems: Problems Problem Status Onset Hip fracture Acute
[2017-01-20 09:02] LABS: MAGNESIUM 1.6 mg/dL (1.6-2.3)
[2017-01-20] MEDS: THIAMINE HCL 500 MG in NS 100 ML IV SCH (09:25)
[2017-01-20] MEDS: MULTIVITAMINS 1 EACH TAB PO SCH (09:31)
[2017-01-20 09:32] LABS: POTASSIUM 2.7 mEq/L (3.5-5.2)
[2017-01-20] MEDS: FLUoxetine 20 MG CAP PO SCH (09:32)
[2017-01-20] MEDS: FOLIC ACID 1 MG TAB PO SCH (09:32)
--- NOTE | 2017-01-20 09:33 | HOSPPROG ---
Hospitalist Progress Note Assessment/Plan: Patient is a 61-year-old female who had a mechanical fall at home and sustained a left hip fracture. She was to go OR this morning but had some altered mental status. I just reviewed her CT of her head which shows nothing acute. * left hip fracture POD #1 IM nail fixation Left hip some swelling and serous bloody drainage * acute altered mental status CT scan of the head is stable CT scan of the head is stable she is agitated during my evaluation but is able to follow commands She appears to be withdrawing, she is picking and had plus her Vega catheter * hyponatremia get urine na and osmol now Gently hydrate with normal saline *Hypokalemia k protocol/significantly low Will place her on mechanical drawing teacher * anemia/acute blood loss Will follow she may require transfusion * alcohol use with an alcohol level of 192 Placed on the CIWA protocol describes that she uses quite a bit of alcohol and drinks wine Will order wine with dinner and lunch to avoid withdrawals from this on folate, thiamine * tachycardia Suspect this is from withdrawal * left knee pain Will get an x-ray to further evaluate *underweight with a BMI of 18 * cannabis use * chronic opiate use Per her she is on chronic methadone May be difficult to control her pain in the postop setting will ask pharmacy to do a pain consult During my evaluation pain was uncontrollable, initiated a CLINICAL INFORMATICS PHYSICIAN * hypertension Blood pressure is elevated this morning I suspect this is secondary from pain she is on an ACEI/diuretic, will hold diuretic in the setting of hyponatremia will resume the ACEI only * nicotine dependence patch * gait instability resulting in a fall *DVT prophylaxis: Lovenox *Plan: Spoke with the [facility] doctor, Dr Garcia, her number is [phone]. She would like an update. Unable to transfer the patient back to [facility] due to her low sodium and she is actively withdrawing. Reviewed her labs with [facility] physician. Her sodium is usually normal. Will recheck labs later today. Greater than 40 minutes caring for the patient and discussing her care with [facility] Subjective: Kalee is c/o pain to her hip and knee. Objective: Vital Signs Temp Pulse Resp BP Pulse Ox 37.2 C 109 H 17 166/103 H 93 01/20/17 07:46 01/20/17 07:46 01/20/17 07:46 01/20/17 07:46 01/20/17 07:46 Laboratory Results 01/20/17 04:30 01/19/17 01/20/17 01/21/17 05:59 05:59 05:59 Intake Total 500 900 Output Total 1900 Balance 500 -1000 PT 13.5 SEC (12.0-15.0) 01/19/17 03:30 INR 1.04 (0.83-1.16) 01/19/17 03:30 - Physical Exam Constitutional: chronically ill appearing, cachectic Eyes: PERRL Ears, Nose, Mouth, Throat: hearing normal Cardiovascular: regular rate and rhythym, tachycardia Respiratory: no respiratory distress, reduced air movement Gastrointestinal: normoactive bowel sounds Skin: warm, other (Left hip with swelling. Serous bloody drainage coming to the dressing) Musculoskeletal: muscular tenderness Neurologic: other (Alert and oriented to person place and situation) Psychiatric: not encephalopathic, thought process linear, anxious ICD10 Worksheet Patient Problems: Problems Problem Status Onset Hip fracture Acute
[2017-01-20] MEDS ORDERED: MAGNESIUM SULF 1 GM/DEXTROSE 100 ML IV ONE (09:58)
[2017-01-20] MEDS ORDERED: POTASSIUM CL 10 MEQ TAB PO ONE (09:58)
[2017-01-20] MEDS: HYDROmorphONE/DILAUDID 6 MG/30 ML PCA IV PRN (11:42)
--- NOTE | 2017-01-20 14:08 | ASMTCMCOM ---
CM Note CM Note Notes: Pt has hip fx after fall, had surgery here. [place] [facility] doc to doc completed today. Unknown still if pt will transfer to [facility] facility, it will not happen today. Therapy evals pending Complicating factors are pt ETOH use (on CIWA) and chronic methadone. CM to follow. Date Signed: 01/20/2017 02:07 PM Electronically Signed By:NIYAH Garcia
[2017-01-20 15:58] LABS: ANION GAP 7 mEq/L (8-16); CALCIUM 7.9 mg/dL (8.5-10.4); CARBON DIOXIDE 27 mEq/l (22-31); CHLORIDE 88 mEq/L (97-110); CREATININE 0.6 mg/dL (0.6-1.0); GLOMERULAR FILTRATION RATE > 60; GLUCOSE 157 mg/dL (70-100); SODIUM 122 mEq/L (134-144)
[2017-01-20] MEDS: WHITE WINE 120 ML BOTTLE PO SCH (16:27)
[2017-01-20 18:22] LABS: ALANINE AMINOTRANSFERASE 25 IU/L (9-52); ALBUMIN 3.3 g/dL (3.5-5.0); ALKALINE PHOSPHATASE 43 IU/L (38-126); ANION GAP 10 mEq/L (8-16); ASPARTATE AMINOTRANSFERASE 34 IU/L (14-46); BILIRUBIN,TOTAL 0.6 mg/dL (0.1-1.4); CALCIUM 8.1 mg/dL (8.5-10.4); CARBON DIOXIDE 24 mEq/l (22-31); CHLORIDE 90 mEq/L (97-110); CREATININE 0.5 mg/dL (0.6-1.0); GLOMERULAR FILTRATION RATE > 60; GLUCOSE 179 mg/dL (70-100); POTASSIUM 3.1 mEq/L (3.5-5.2); SODIUM 124 mEq/L (134-144); TOTAL PROTEIN 5.3 g/dL (6.3-8.2)
[2017-01-20] MEDS: LISINOPRIL 20 MG TAB PO SCH (18:28)
[2017-01-20 23:50] LABS: ALANINE AMINOTRANSFERASE 28 IU/L (9-52); ALBUMIN 3.1 g/dL (3.5-5.0); ALKALINE PHOSPHATASE 45 IU/L (38-126); ANION GAP 6 mEq/L (8-16); ASPARTATE AMINOTRANSFERASE 36 IU/L (14-46); BILIRUBIN,TOTAL 0.7 mg/dL (0.1-1.4); CALCIUM 8.3 mg/dL (8.5-10.4); CARBON DIOXIDE 28 mEq/l (22-31); CHLORIDE 88 mEq/L (97-110); CREATININE 0.5 mg/dL (0.6-1.0); GLOMERULAR FILTRATION RATE > 60; GLUCOSE 117 mg/dL (70-100); POTASSIUM 2.8 mEq/L (3.5-5.2); SODIUM 122 mEq/L (134-144); TOTAL PROTEIN 5.5 g/dL (6.3-8.2)
[2017-01-21] MEDS ORDERED: POTASSIUM CL 10 MEQ TAB PO ONE ×2 (00:07→20:10)
[2017-01-21] MEDS: WHITE WINE 120 ML BOTTLE PO SCH ×2 (00:42→17:34)
[2017-01-21] MEDS: oxyCODONE IR 5 MG TAB PO PRN ×5 (02:01→21:03)
[2017-01-21] MEDS: LORazepam 2 MG/ML INJ IVP PRN (02:01)
[2017-01-21] MEDS: HYDROmorphONE/DILAUDID 6 MG/30 ML PCA IV PRN (02:13)
[2017-01-21 05:10] LABS: % IMMATURE GRANULYOCYTES 0.2 % (0.0-1.1); ABSOLUTE IMMATURE GRANULOCYTES 0.01 10^3/uL (0.00-0.10); ADD DIFF? NO; ADD MORPH? YES; ADD SCAN? NO; ATYPICAL LYMPHOCYTE FLAG 0 (0-99); FRAGMENT RBC FLAG 0 (0-99); HEMATOCRIT 18.3 % (38.0-47.0); LEFT SHIFT FLG 0 (0-99); LIPEMIA HEMOLYSIS FLAG 90 (0-99); MEAN CELL HEMOGLOBIN 31.4 pg (27.9-34.1); MEAN CELL VOLUME 89.7 fL (81.5-99.8); MEAN PLATELET VOLUME 10.1 fL (8.7-11.7); PLATELET CLUMPS FLAG 10 (0-99); PLATELET COUNT 130 10^3/uL (150-400); RED BLOOD CELL COUNT 2.04 10^6/uL (4.18-5.33); RED CELL DISTRIBUTION WIDTH 11.2 % (11.5-15.2)
[2017-01-21 05:12] LABS: HEMOGLOBIN 6.4 g/dL (12.6-16.3)
[2017-01-21 05:36] LABS: ALANINE AMINOTRANSFERASE 27 IU/L (9-52); ALBUMIN 3.1 g/dL (3.5-5.0); ALKALINE PHOSPHATASE 41 IU/L (38-126); ANION GAP 7 mEq/L (8-16); ASPARTATE AMINOTRANSFERASE 34 IU/L (14-46); BILIRUBIN,TOTAL 0.8 mg/dL (0.1-1.4); CALCIUM 8.1 mg/dL (8.5-10.4); CARBON DIOXIDE 28 mEq/l (22-31); CHLORIDE 94 mEq/L (97-110); CREATININE 0.5 mg/dL (0.6-1.0); GLOMERULAR FILTRATION RATE > 60; GLUCOSE 107 mg/dL (70-100); MAGNESIUM 1.7 mg/dL (1.6-2.3); POTASSIUM 3.4 mEq/L (3.5-5.2); SODIUM 129 mEq/L (134-144); TOTAL PROTEIN 5.2 g/dL (6.3-8.2)
[2017-01-21 05:50] LABS: HYPOCHROMIA 1+; MICROCYTES 1+; PLATELET ESTIMATE DECREASED (ADEQ)
--- NOTE | 2017-01-21 08:05 | SOAPPROG ---
SOAP Progress Note Assessment/Plan: Assessment/Plan: L intertrochanteric hip fracture s/p IM nail fixation L hip fracture performed by Dr. Kothari, POD #2 - Continue current pain management, encourage PO as tolerated, cont pain consult and management by pharm/medicine team - D/c madan, encourage OOB as tolerated - Cont PT/OT, pt will remain TDWB LLE - Cont SCDs/TEDs for VTE mechanical prophylaxis - Cont Lovenox 40mg daily for VTE chemoprophylaxis 01/21/17 08:03 01/21/17 12:40 Subjective: Pt seen at bedside. She complains of continued pain "all over", but denies any significant pain in the left hip/leg. She states she has not yet been OOB with PT. She states she is tolerating her diet and medications well. The pt notes that "she has a high tolerance for pain medications", and that "oxycontin has worked well in the past." She has no additional concerns or complaints at this time. Objective: Vital Signs Temp Pulse Resp BP Pulse Ox 36.7 C 97 13 162/97 H 97 01/21/17 07:31 01/21/17 07:31 01/21/17 07:31 01/21/17 07:31 01/21/17 07:31 Laboratory Results 01/21/17 04:55 01/21/17 04:55 01/20/17 01/21/17 01/22/17 05:59 05:59 05:59 Intake Total 900 1850 Output Total 1900 2000 Balance -1000 -150 PT 13.5 SEC (12.0-15.0) 01/19/17 03:30 INR 1.04 (0.83-1.16) 01/19/17 03:30 Pt seen at bedside, A&Ox3, appropriate mood and affect. Pleasant and cooperative with today's exam. Exam of the LLE reveals intact post operative dressings, dry. Intact kristi/sutures are noted. No significant surrounding erythema, calor, discharge or induration noted. Thigh compartment is supple. Pt slightly apprehensive to move given pain level, but does move leg/ankle/foot/ toes well. Pt is intact to light touch sensation distally. SCDs and TEDs in place bilaterally. Post calves are NTTP, no palpable vascular cords, neg Nahun' s bilat. DNVI BLE. ICD10 Worksheet Patient Problems: Problems Problem Status Onset Hip fracture Acute
[2017-01-21] MEDS ORDERED: MAGNESIUM HYDROXIDE 30 ML UDCUP PO PRN (08:36)
[2017-01-21] MEDS ORDERED: LACTULOSE 20 GM/30 ML UDCUP PO PRN (08:36)
[2017-01-21] MEDS ORDERED: BISACODYL 10 MG SUPP PR PRN (08:36)
[2017-01-21] MEDS: LISINOPRIL 20 MG TAB PO SCH (08:37)
[2017-01-21] MEDS: MULTIVITAMINS 1 EACH TAB PO SCH (08:37)
[2017-01-21] MEDS: FOLIC ACID 1 MG TAB PO SCH (08:38)
[2017-01-21] MEDS: traMADol 50 MG TAB PO PRN ×2 (08:39→14:40)
[2017-01-21] MEDS: FLUoxetine 20 MG CAP PO SCH (08:39)
[2017-01-21] MEDS: NS 1,000 ML IV SCH (08:41)
[2017-01-21] MEDS: SENNOSIDES/DOCUSATE SODIUM TAB PO SCH ×2 (09:39→21:03)
[2017-01-21] MEDS: POLYETHYLENE GLYCOL 3350 17 GM PKT PO PRN (09:40)
[2017-01-21] MEDS: amLODIPine BESYLATE 5 MG TAB PO SCH (09:43)
[2017-01-21] MEDS: THIAMINE HCL 500 MG in NS 100 ML IV SCH (09:45)
[2017-01-21] MEDS ORDERED: MAGNESIUM SULF 1 GM/DEXTROSE 100 ML IV ONE (11:04)
[2017-01-21] MEDS: HYDROmorphONE/DILAUDID 1 MG/ML INJ IVP PRN (11:21)
[2017-01-21] MEDS ORDERED: K PHOS 10 MMOL in D5W 250 ML IV ONE (12:00)
[2017-01-21] MEDS ORDERED: LORazepam 2 MG/ML INJ IVP PRN (12:58)
[2017-01-21] MEDS ORDERED: oxyCODONE IR 5 MG TAB PO PRN (13:08)
[2017-01-21] MEDS: METHADONE HCL 10 MG TAB PO SCH ×2 (13:38→21:04)
[2017-01-21] MEDS ORDERED: FUROSEMIDE 20 MG/2 ML VIAL IVP ONE (13:40)
--- NOTE | 2017-01-21 17:44 | HOSPPROG ---
Hospitalist Progress Note Assessment/Plan: Assessment: 61-year-old F p/w acute left hip fracture Plan: * left hip fracture. acute, traumatic, POD#2 IM nail fixation - appreciate ongoing ortho consult, please advise window for outpatient f/u - TDWB LLE * acute alcohol withdraw. evidenced by anxiety, picking, counseled patient and today that complete cessation is recommended given her opiate dependency and recent trauma, and she agrees that cessation would be a positive goal at this time, will stop EtOH - place on ativan CIWA - stop wine - offer SW resources * hyponatremia. initially hypovolemic, now likely exacerbated by IVF and diuretic/ACEi - stopped Rx - give blood to raise oncotic pressure - free water restriction - repeat level in AM * Hypokalemia. acute, likely 2/2 poor diet, cont protocol K/Mg * acute blood loss anemia. evidenced by decline in Hgb to 6.4, requiring 2u PRBC today w/ lasix - monitor wound for bleeding - repeat Hgb in AM * left knee effusion. 2/2 trauma, x-ray w/o hardware displacement - rec ICE pack *underweight with a BMI of 15 * chronic opiate dependency. On methadone at home for pain, recommend restarting now and increasing instead of adding a 2nd long-acting opiate - methadone 20mg bid - PRN oxy IR, dilaudid IV * hypertension. Chronic, adjusted to amlodipine * nicotine dependence. chronic, patch Diet. Regular PPx. High risk, holding pharm given anemia, SCDs Code. Full Dispo. ADD uncertain, performing daily f/u calls w/ [facility] (d/w Dr. Martinez today) , recommend ongoing inpatient care at our facility given anemia Subjective: ongoing pain in L knee, counseled extensively regarding alcohol cessation Objective: Vital Signs Temp Pulse Resp BP Pulse Ox 36.9 C 102 H 12 144/90 H 96 01/21/17 16:00 01/21/17 16:00 01/21/17 16:00 01/21/17 16:00 01/21/17 16:00 Laboratory Results 01/21/17 04:55 01/21/17 04:55 01/20/17 01/21/17 01/22/17 05:59 05:59 05:59 Intake Total 900 1850 2049 Output Total 1900 1999 Balance -1000 -150 2050 PT 13.5 SEC (12.0-15.0) 01/19/17 03:30 INR 1.04 (0.83-1.16) 01/19/17 03:30 - Time Spent With Patient Time Spent with Patient: greater than 35 minutes Time Spent with Patient: Greater than 35 minutes spent on this patients care, greater than 50% of time spent counseling, educating, and coordinating care regarding the above mentioned plan. - Physical Exam Constitutional: chronically ill appearing, uncomfortable Cardiovascular: tachycardia, No systolic murmur, No irregularly irregular, No edema Respiratory: no respiratory distress, no rales or rhonchi, clear to auscultation Gastrointestinal: normoactive bowel sounds, soft, non-tender abdomen, no palpable masses Musculoskeletal: other (L knee effusion, minimal tenderness) Neurologic: AAOx3, sensation intact bilaterally Psychiatric: anxious, other (honest), No agitated ICD10 Worksheet Patient Problems: Problems Problem Status Onset Hip fracture Acute
[2017-01-21 19:44] LABS: POTASSIUM 3.7 mEq/L (3.5-5.2)
[2017-01-22] MEDS: LORazepam 1 MG TAB PO PRN ×3 (01:52→22:47)
[2017-01-22] MEDS: oxyCODONE IR 5 MG TAB PO PRN ×6 (01:52→22:46)
[2017-01-22 04:49] LABS: % IMMATURE GRANULYOCYTES 0.5 % (0.0-1.1); ABSOLUTE IMMATURE GRANULOCYTES 0.03 10^3/uL (0.00-0.10); ADD DIFF? NO; ADD MORPH? NO; ADD SCAN? NO; ATYPICAL LYMPHOCYTE FLAG 0 (0-99); FRAGMENT RBC FLAG 0 (0-99); HEMOGLOBIN 9.4 g/dL (12.6-16.3); LEFT SHIFT FLG 0 (0-99); LIPEMIA HEMOLYSIS FLAG 90 (0-99); MEAN CELL HEMOGLOBIN 31.6 pg (27.9-34.1); MEAN CELL HEMOGLOBIN CONCENTR. 36.2 g/dL (32.4-36.7); MEAN CELL VOLUME 87.5 fL (81.5-99.8); MEAN PLATELET VOLUME 9.6 fL (8.7-11.7); PLATELET CLUMPS FLAG 0 (0-99); PLATELET COUNT 131 10^3/uL (150-400); RED BLOOD CELL COUNT 2.97 10^6/uL (4.18-5.33); RED CELL DISTRIBUTION WIDTH 12.1 % (11.5-15.2)
[2017-01-22 05:03] LABS: ANION GAP 8 mEq/L (8-16); CALCIUM 8.6 mg/dL (8.5-10.4); CARBON DIOXIDE 27 mEq/l (22-31); CHLORIDE 93 mEq/L (97-110); CREATININE 0.5 mg/dL (0.6-1.0); GLOMERULAR FILTRATION RATE > 60; GLUCOSE 99 mg/dL (70-100); MAGNESIUM 1.7 mg/dL (1.6-2.3); POTASSIUM 3.2 mEq/L (3.5-5.2); SODIUM 128 mEq/L (134-144)
[2017-01-22] MEDS ORDERED: MAGNESIUM SULF 1 GM/DEXTROSE 100 ML IV ONE (07:48)
[2017-01-22] MEDS ORDERED: POTASSIUM CL 10 MEQ TAB PO ONE ×2 (07:48→22:15)
[2017-01-22] MEDS: SENNOSIDES/DOCUSATE SODIUM TAB PO SCH ×2 (08:09→19:36)
[2017-01-22] MEDS: MULTIVITAMINS 1 EACH TAB PO SCH (08:09)
[2017-01-22] MEDS: amLODIPine BESYLATE 5 MG TAB PO SCH (08:09)
[2017-01-22] MEDS: FOLIC ACID 1 MG TAB PO SCH (08:09)
[2017-01-22] MEDS: METHADONE HCL 10 MG TAB PO SCH ×2 (08:09→19:35)
[2017-01-22] MEDS: FLUoxetine 20 MG CAP PO SCH (08:10)
[2017-01-22] MEDS: THIAMINE HCL 100 MG TAB PO SCH (08:10)
[2017-01-22] MEDS ORDERED: POTASSIUM Cl (KCl) 40 MEQ in NS 1,000 ML IV SCH (08:45)
[2017-01-22] MEDS: THIAMINE HCL 500 MG in NS 100 ML IV SCH (09:29)
--- NOTE | 2017-01-22 12:27 | ASMTCMCOM ---
CM Note CM Note Notes: Pt accepted at [facility] who should have [facility] bed tomorrow. Per Corazon at [facility] pt CIWA needs to be 0 for them to admit. Updated pt and [facility] who are agreeable to [facility] d/c. CM to follow. Date Signed: 01/22/2017 12:27 PM Electronically Signed By:NIYAH Garcia
--- NOTE | 2017-01-22 12:53 | SOAPPROG ---
SOAP Progress Note Assessment/Plan: Assessment/Plan: s/p IM nail fixation L hip fracture POD#3 - Continue pain management, pain consult would be helpful - TDWB LLE - SCDs/TEDs for mechanical prophylaxis - Lovenox 40mg daily for VTE chemoprophylaxis - Continue PT/OT - Ortho stable for discharge 01/20/17 08:55 01/20/17 09:01 01/22/17 12:50 Subjective: Pt states her pain increases with ambulation, but has been up with PT. Pt denies fever, chills, chest pain, SOB, abdominal pain, N/V/D, numbness, tingling and calf pain. Objective: Vital Signs Temp Pulse Resp BP Pulse Ox 36.4 C 94 16 153/96 H 96 01/22/17 11:23 01/22/17 11:23 01/22/17 11:23 01/22/17 11:23 01/22/17 11:23 Laboratory Results 01/22/17 04:30 01/22/17 04:30 01/21/17 01/22/17 01/23/17 05:59 05:59 05:59 Intake Total 1850 3250 Output Total 2000 Balance -150 3250 PT 13.5 SEC (12.0-15.0) 01/19/17 03:30 INR 1.04 (0.83-1.16) 01/19/17 03:30 Physical Exam - Physical Exam General Appearance: alert, no apparent distress Cardiac/Chest: normal peripheral pulses Skin: normal color, warm/dry, other (incision site c/d/i) Extremities: normal capillary refill, No pedal edema, No calf tenderness, No swelling, No Nahun's sign Neuro/Psych: no motor/sensory deficits, alert, normal mood/affect, oriented x 3 ICD10 Worksheet Patient Problems: Problems Problem Status Onset Hip fracture Acute
--- NOTE | 2017-01-22 18:07 | HOSPPROG ---
Hospitalist Progress Note Assessment/Plan: Assessment: 61-year-old F p/w acute left hip fracture Plan: * left hip fracture. acute, traumatic, POD#3 IM nail fixation - appreciate ongoing ortho consult, d/w Ani Crow - TDWB LLE * acute alcohol withdraw. evidenced by anxiety, picking, counseled patient and today that complete cessation is recommended given her opiate dependency and recent trauma, and she agrees that cessation would be a positive goal at this time, will stop EtOH - placed on ativan CIWA, minimal requirements o/n - offer SW resources * hyponatremia. initially hypovolemic, now likely exacerbated by free water and diuretic/ACEi - stopped Rx - free water restriction - give NS and repeat level in AM * Hypokalemia. acute, likely 2/2 poor diet, cont protocol K/Mg * acute blood loss anemia. evidenced by decline in Hgb to 6.4, required 2u PRBC , stabilized - monitor wound for bleeding - repeat Hgb in AM * left knee effusion. 2/2 trauma, x-ray w/o hardware displacement - rec ICE pack - counseled patient that ongoing ROM therapy will be helpful *underweight with a BMI of 15 * chronic opiate dependency. On methadone at home for pain, restarted - methadone 20mg bid - PRN oxy IR, dilaudid IV * hypertension. Chronic, adjusted to amlodipine * nicotine dependence. chronic, patch Diet. Regular PPx. High risk, holding pharm given anemia, SCDs Code. Full Dispo. ADD 01/23, d/w Dr. Martinez today and provided update, recs ongoing inpt care at [facility] Subjective: counseled patient regarding bisacodyl suppository for constipation Objective: Vital Signs Temp Pulse Resp BP Pulse Ox 36.8 C 107 H 18 167/97 H 94 01/22/17 16:31 01/22/17 16:31 01/22/17 16:31 01/22/17 16:31 01/22/17 16:31 Laboratory Results 01/22/17 04:30 01/22/17 04:30 01/21/17 01/22/17 01/23/17 05:59 05:59 05:59 Intake Total 1850 3250 Output Total 2000 Balance -150 3250 PT 13.5 SEC (12.0-15.0) 10/08/17 03:30 INR 1.04 (0.83-1.16) 01/19/17 03:30 - Time Spent With Patient Time Spent with Patient: greater than 35 minutes Time Spent with Patient: Greater than 35 minutes spent on this patients care, greater than 50% of time spent counseling, educating, and coordinating care regarding the above mentioned plan. - Pending Discharge Pending Discharge Within 24 Hours: Yes Pending Discharge Date: 01/23/17 Pending Discharge Time: 11:00 - Physical Exam Constitutional: chronically ill appearing, uncomfortable, cachectic Cardiovascular: regular rate and rhythym, no murmur, rub, or gallop Respiratory: no respiratory distress, no rales or rhonchi, clear to auscultation Gastrointestinal: normoactive bowel sounds, soft, non-tender abdomen, no palpable masses Skin: other (soft tissue edema and mild tenderness over L hip w/o ecchymoses) Musculoskeletal: other (passive flexion to 90 deg L knee, ongoing effusion, non- tender) Neurologic: other (mild tremor), No asterixes Psychiatric: interacting appropriately, not anxious, not encephalopathic, thought process linear ICD10 Worksheet Patient Problems: Problems Problem Status Onset Hip fracture Acute
[2017-01-22 21:27] LABS: POTASSIUM 3.9 mEq/L (3.5-5.2)
[2017-01-23] MEDS: oxyCODONE IR 5 MG TAB PO PRN ×3 (02:33→09:13)
[2017-01-23] MEDS: traMADol 50 MG TAB PO PRN (04:37)
[2017-01-23] MEDS: LORazepam 1 MG TAB PO PRN ×2 (05:42→09:13)
[2017-01-23 05:50] LABS: HEMATOCRIT 26.4 % (38.0-47.0); HEMOGLOBIN 9.5 g/dL (12.6-16.3)
[2017-01-23 06:09] LABS: ANION GAP 9 mEq/L (8-16); CALCIUM 9.2 mg/dL (8.5-10.4); CARBON DIOXIDE 24 mEq/l (22-31); CHLORIDE 93 mEq/L (97-110); CREATININE 0.5 mg/dL (0.6-1.0); GLOMERULAR FILTRATION RATE > 60; GLUCOSE 91 mg/dL (70-100); MAGNESIUM 1.6 mg/dL (1.6-2.3); SODIUM 126 mEq/L (134-144)
--- NOTE | 2017-01-23 07:45 | SOAPPROG ---
SOAP Progress Note Assessment/Plan: Assessment:s/p IM nail fixation Left hip fracture, POD#4 Continue pain management TDWB LLE SCD/MORGAN's for mechanical prophylaxis Lovenox 40 mg QD Continue PT/OT Dressing Change as needed Pt. stable from an Orthopedic standpoint to be discharged. S: Pt. states that she is still in pain, from the left hip primarily. No fevers , CP, SOB, Calf pain or swelling, N/T of extremities. O: Pt. alert, answering questions appropriately, drowsy. In no acute distress. Respirations easy, unlabored. Abd. Soft. Calves without swelling, warmth or TTP. Pt. is DNVI BLE. Plan: 01/23/17 07:41 Objective: Vital Signs Temp Pulse Resp BP Pulse Ox 37.1 C 96 18 181/114 H 92 01/23/17 07:25 01/23/17 07:25 01/23/17 07:25 01/23/17 07:25 01/23/17 07:25 Laboratory Results 01/23/17 05:35 01/23/17 05:35 01/22/17 01/23/17 01/24/17 05:59 05:59 05:59 Intake Total 3250 1250 Output Total 300 Balance 3250 950 PT 13.5 SEC (12.0-15.0) 01/19/17 03:30 INR 1.04 (0.83-1.16) 01/19/17 03:30 ICD10 Worksheet Patient Problems: Problems Problem Status Onset Hip fracture Acute
[2017-01-23] MEDS: amLODIPine BESYLATE 5 MG TAB PO SCH (09:01)
[2017-01-23] MEDS: FLUoxetine 20 MG CAP PO SCH (09:01)
[2017-01-23] MEDS: SENNOSIDES/DOCUSATE SODIUM TAB PO SCH (09:01)
[2017-01-23] MEDS: MULTIVITAMINS 1 EACH TAB PO SCH (09:01)
[2017-01-23] MEDS: THIAMINE HCL 100 MG TAB PO SCH (09:01)
[2017-01-23] MEDS: FOLIC ACID 1 MG TAB PO SCH (09:01)
[2017-01-23] MEDS: METHADONE HCL 10 MG TAB PO SCH (09:02)
[2017-01-23] MEDS: POLYETHYLENE GLYCOL 3350 17 GM PKT PO PRN (09:02)
[2017-01-23] MEDS ORDERED: amLODIPine BESYLATE 5 MG TAB PO ONE (09:31)
[2017-01-23 11:27] VITALS: BP 142/78; PULSE 103; RESP 15; TEMP 97.8; O2SAT 95
--- NOTE | 2017-01-23 12:42 | PDIAF ---
- Diagnosis Diagnosis: Left hip fracture, left knee soft tissue injury/effusion Code Status: Full Code - Medication Management Discharge Medications: Medications to Continue on Transfer FLUoxetine [Prozac 20 MG (*)] 20 mg PO DAILY 01/19/17 [Last Taken Unknown] Methadone HCl [Methadone HCl 10 mg (*)] 20 mg PO BID 01/19/17 [Last Taken ] traMADol [Ultram 50 mg (*)] 25 - 50 mg PO Q6 PRN 01/19/17 [Last Taken Unknown] traZODone [traZODONE 100MG (*)] 50 - 100 mg PO HS 01/19/17 [Last Taken Unknown] Bisacodyl [Dulcolax] 10 mg RC DAILY PRN #30 supp.rect 01/23/17 [Last Taken Unknown] Polyethylene Glycol 3350 [Miralax 17 gm (*)] 17 gm PO DAILY PRN pkt 01/23/17 [ Last Taken Unknown] Sennosides/Docusate Sodium [Senokot-S] 1 - 2 tab PO BID tab 01/23/17 [Last Taken Unknown] amLODIPine BESYLATE [Norvasc 5 mg (*)] 10 mg PO DAILY tab 01/23/17 [Last Taken Unknown] chlordiazePOXIDE [Librium] 10 mg PO HS #3 cap 01/23/17 [Last Taken Unknown] oxyCODONE IR [Oxycodone Ir (*)] 5 - 15 mg PO Q3HRS PRN tab 01/23/17 [Last Taken Unknown] Correction Antibiotics: NA Discharge Medications: Refer to the Discharge Home Medication list for PRN reason. PICC Care - Routine: N/A - Orders Services needed: Registered Nurse, Certified Day Treatment Clinician/Art Therapist, Master Leadite Heater (Alcohol counseling), Physical Therapy, Occupational Therapy Oxygen: 2L PRN Diet Recommendation: no restrictions on diet, fluid restriction (use comment for amount) (1.5L/day) Vega: Not applicable Wound Care Instructions: Keep your incision site clean, dry and covered for bathing; no soaking Activity/Weight Bearing Restrictions: Touch down weight bearing LLE Equipment: continue ice pack on left knee regularly Additional: STOP librium after 3 days - Follow Up Care Current Providers and Referrals: Roge Kothari MD [Medical Doctor] - follow up in 10 days (Call the office to schedule your post-operative visit.) Patient,NotPresent [Unknown] - As per Instructions
--- NOTE | 2017-01-23 12:44 | PDIAF ---
- Diagnosis Diagnosis: Left hip fracture, left knee soft tissue injury/effusion Code Status: Full Code - Medication Management Discharge Medications: Medications to Continue on Transfer FLUoxetine [Prozac 20 MG (*)] 20 mg PO DAILY 01/19/17 [Last Taken Unknown] Methadone HCl [Methadone HCl 10 mg (*)] 20 mg PO BID 01/19/17 [Last Taken ] traMADol [Ultram 50 mg (*)] 25 - 50 mg PO Q6 PRN 01/19/17 [Last Taken Unknown] traZODone [traZODONE 100MG (*)] 50 - 100 mg PO HS 01/19/17 [Last Taken Unknown] Bisacodyl [Dulcolax] 10 mg RC DAILY PRN #30 supp.rect 01/23/17 [Last Taken Unknown] Enoxaparin [Lovenox 40 MG (*)] 40 mg SQ DAILY #18 syr 01/23/17 [Last Taken Unknown] Polyethylene Glycol 3350 [Miralax 17 gm (*)] 17 gm PO DAILY PRN pkt 01/23/17 [ Last Taken Unknown] Sennosides/Docusate Sodium [Senokot-S] 1 - 2 tab PO BID tab 01/23/17 [Last Taken Unknown] amLODIPine BESYLATE [Norvasc 5 mg (*)] 10 mg PO DAILY tab 01/23/17 [Last Taken Unknown] chlordiazePOXIDE [Librium] 10 mg PO HS #3 cap 01/23/17 [Last Taken Unknown] oxyCODONE IR [Oxycodone Ir (*)] 5 - 15 mg PO Q3HRS PRN tab 01/23/17 [Last Taken Unknown] Line Puller Antibiotics: NA Discharge Medications: Refer to the Discharge Home Medication list for PRN reason. PICC Care - Routine: N/A - Orders Services needed: Registered Nurse, Certified Stone Grader, Master Insole Taper (Alcohol counseling), Physical Therapy, Occupational Therapy Oxygen: 2L PRN Diet Recommendation: no restrictions on diet, fluid restriction (use comment for amount) (1.5L/day) Vega: Not applicable Wound Care Instructions: Keep your incision site clean, dry and covered for bathing; no soaking Activity/Weight Bearing Restrictions: Touch down weight bearing LLE Equipment: continue ice pack on left knee regularly Additional: STOP librium after 3 days, STOP lovenox after 18 days - Follow Up Care Current Providers and Referrals: Roge Kothari MD [Medical Doctor] - follow up in 10 days (Call the office to schedule your post-operative visit.) Patient,NotPresent [Unknown] - As per Instructions
--- NOTE | 2017-01-23 14:35 | ASDISCHSUM ---
Discharge Information Plan Status:SNF Medically Cleared to Leave: Discharge Date:01/23/2017 01:50 PM CM D/C Disposition:Long Term Facility ADT D/C Disposition:Long Term Facility Projected Discharge Date:01/22/2017 11:00 AM Transportation at D/C:Wheelchair Van Discharge Delay Reason: Follow-Up Date:01/22/2017 11:00 AM Discharge Slot: Final Diagnosis: Placement Information Referral Type:*Usp/SNF Referral ID:[id number] Provider Name:Felisha Bills Address 1:[address] [facility] Phone Number: Address 2: Fax Number: City:[place] Selection Factors: State:[place] Patient Contact Information Contact Name:MYESHA Relationship: Address:[address]:[facility] Phone: State/Zip Code:[place] [address] Email: Financial Information Financial Class:HMO and PPO Plans Primary Plan Desc:[facility] Primary Plan Number:[id number] Secondary Plan Desc: Secondary Plan Number: Assessment Information [facility] CM Progress Note CM Note CM Note Notes: Pt has hip fx after fall, had surgery here. [place] doc to doc completed today. Unknown still if pt will transfer to [facility], it will not happen today. Therapy evals pending Complicating factors are pt ETOH use (on CIWA) and chronic methadone. CM to follow. Date Signed: 01/20/2017 02:07 PM Electronically Signed By:NIYAH Garcia [facility] CM Progress Note CM Note CM Note Notes: Pt accepted at [facility] who should have [place] bed tomorrow. Per Corazon at pt CIWA needs to be 0 for them to admit. Updated pt and hipolito [facility] who are agreeable to d/c. CM to follow. Date Signed: 01/22/2017 12:27 PM Electronically Signed By:NIYAH Garcia [facility] CM Progress Note CM Note CM Note Notes: Pt medically stable for d/c to [facility]. Initially [facility] said pt can admit only w 0 CIWA, Corazon received approval for waiver as pt CIWA is 4 but only on anxiety. Date Signed: 01/23/2017 02:33 PM Electronically Signed By:NIYAH Garcia Intervention Information
--- NOTE | 2017-01-23 18:07 | PDDCSUM ---
Discharge Summary Discharge Summary: DISCHARGE SUMMARY FOLLOW-UP ITEMS: Intensive outpatient alcohol counseling DATE OF ADMISSION: 01/19/2017 DATE OF DISCHARGE: 01/23/2017 DISCHARGE DIAGNOSES: 1. Acute left hip fracture 2. Acute left knee effusion 3. Acute alcohol withdrawal 4. Acute on chronic hyponatremia 5. Acute hypokalemia 6. Acute blood loss anemia 7. Underweight with BMI 15 8. Chronic pain with continuous opiate dependency 9. Chronic hypertension CONSULTATIONS: Orthopedics by Dr. Roge Kothari PROCEDURES / IMAGING: Hip x-ray, knee x-ray, head CT CHIEF COMPLAINT: Acute knee and left hip pain SUBJECTIVE: Patient reports pain is well managed at time of discharge, she is situationally anxious but not more so than her baseline PHYSICAL EXAM ON DISCHARGE: Systolic blood pressure is 160, heart rate 90, afebrile overnight, satting well on room air, alert awake oriented x3, slightly lethargic but arousable to voice and fully conversant, no tremulousness, mild effusion over left knee, which is not tender to palpation, no soft tissue ecchymoses over the left hip, some soft tissue edema with very minimal tenderness LABS ON DISCHARGE: Serum sodium 126, creatinine 0.5, urine sodium 60, hemoglobin 9.5 HOSPITAL COURSE BY PROBLEM: The patient presented with acute traumatic mechanical fall resulting in acute left hip fracture as well as acute left knee effusion. Rib fracture required surgical repair with inter medullary nail fixation by Dr. Roge Kothari. The surgery was uncomplicated but the patient did experience some acute blood loss anemia requiring 2 units of packed red blood cells. Her hemoglobin was stable above 9 prior to discharge. Her pain was well managed, initially requiring a postoperative RETAIL ADMINISTRATIVE ASSISTANT, but then transitioned onto oral oxycodone therapy. The patient continues to experience pain in her left knee, which is secondary to a soft tissue injury with effusion, and normal hardware alignment on x-ray. We recommend ongoing eye on this left knee, increasing her range of motion, which has been a chronic challenge for this patient's left knee. The patient does have a chronic opiate dependency issue, and she was re-initiated on her home dosage of methadone, using oxycodone immediate release as needed for breakthrough pain control. I would recommend weaning her off of oxycodone 6 possible inpatient setting, avoid worsening her physiologic dependency. The patient also experienced acute on chronic hyponatremia, with her serum sodium level following to as low as 122, in the setting of free water polydipsia as well as IV fluids received perioperatively. We will place the patient free water restriction, discontinued her home diuretic and ABBE inhibitor, and her serum sodium level stabilized around 126 at discharge. I recommend that her serum sodium level continued to be checked as an outpatient through primary care provider's office. I reviewed her previous levels, it appears that her baseline level is somewhere between 125-135. In lieu of patient's previous home antihypertensive medication, we initiated amlodipine and up titrated during this hospitalization. The patient also experienced some acute hypokalemia and she received potassium and magnesium protocol. Lastly, the patient did experience acute alcohol withdrawal, after she decided to completely stop drinking. The patient did experience a mild level of alcohol withdrawal and received Ativan, which did extend her hospitalization. At the time of discharge, the patient is safe for discharge on 10mg librium HS for 3 subsequent nights, then discontinuation.The patient received alcohol counseling and was our recommendation that she pursue complete cessation given her concomitant opiate dependency and her high risk of subsequent falls. The patient and her agree that she would benefit from sobriety, and they are very serious about pursuing outpatient alcohol counseling resources. I shared my recommendations with the on-call [place] physician who participated in the patient's a daily coordination of care. DISCHARGE MEDICATIONS: Please see official discharge medication reconciliation sheet in chart , oxycodone immediate release as needed, continuation of home medications with the exception of lisinopril hydrochlorothiazide which has been replaced by amlodipine 10 mg daily. DISCHARGE INSTRUCTIONS: Please schedule follow up with Dr. Roge Kothari in his office in 10 days, then her primary care provider immediately following discharge from alf facility. TIME SPENT: Greater than 30 minutes were spent on direct patient care, as well as discharge planning and preparation.
[2017-01-24] MEDS ORDERED: amLODIPine BESYLATE 5 MG TAB PO SCH (09:00)
== END 2017-01-23 13:50 | DRG 481 ==
LOC: EDUNIT# → F3N 06:09
PROVIDERS: ADMIT Family Medicine; ATTEND Internal Medicine
PROC: 0QS706Z Reposition Left Upper Femur with Intramedullary Internal Fixation Device, Open Approach (ICD-10-PCS; principal; 2017-01-19 14:00)
PROC: 30233N1 Transfusion of Nonautologous Red Blood Cells into Peripheral Vein, Percutaneous Approach (ICD-10-PCS; 2017-01-21)
DX: S72.142A Displaced intertrochanteric fracture of left femur, initial encounter for closed fracture (principal); W01.0XXA Fall on same level from slipping, tripping and stumbling without subsequent striking against object, initial encounter; F10.230 Alcohol dependence with withdrawal, uncomplicated; E87.1 Hypo-osmolality and hyponatremia; D62 Acute posthemorrhagic anemia; M25.462 Effusion, left knee; R63.6 Underweight; Z68.1 Body mass index [BMI] 19.9 or less, adult; Z79.891 Long term (current) use of opiate analgesic; G89.29 Other chronic pain; I10 Essential (primary) hypertension; F12.90 Cannabis use, unspecified, uncomplicated; F17.200 Nicotine dependence, unspecified, uncomplicated; E87.6 Hypokalemia; Z96.652 Presence of left artificial knee joint
CPT/HCPCS: 80305; 96374; 97116-GP; 97162-GP; 97166-GO; 97535-GO; C1713; C1769; G0480; J0171; J0330; J0690; J1100; J1170; J1200; J1650; J1940; J2060; J2704; J3010; J3411; J3475; J3490; P9016